=== PATIENT | male | born 1965 | race Two or more races ===

== ENCOUNTER 2019-01-17 10:22 | Emergency (ER) | payer OTHER ==
[~2019-01-17] VITALS: Ht 177.8 cm; Wt 86.0 kg
[2019-01-17] MEDS ORDERED: DICYCLOMINE 10 MG/5 ML ORAL SYR PO STA (13:44)
[2019-01-17] MEDS ORDERED: VISCOUS LIDOCAINE 2% 15 ML UDC PO STA (13:44)
[2019-01-17] MEDS ORDERED: MAGNESIUM/ALUMINUM HYDROXIDE/SIMETHICONE 30ML UDC PO STA (13:44)
[2019-01-17] MEDS ORDERED: SODIUM CHLORIDE 0.9% 1,000 ML IV ONE (13:44)
[2019-01-17] MEDS ORDERED: ONDANSETRON HCL 4MG/2ML INJ IV STA (13:44)
[2019-01-17] MEDS ORDERED: LOPERAMIDE 2 MG/10 ML UDC PO ONE (13:45)
[2019-01-17 14:08] LABS: BASOPHILS % 0.3 % (0.0-2.0); EOSINOPHILS % 0.6 % (0.0-5.0); HEMATOCRIT. 46.9 % (42.0-52.0); HEMOGLOBIN. 15.9 g/dL (14.0-18.0); MEAN CORPUSCULAR HEMOGLOBIN 29.6 pg (28.0-32.0); MEAN CORPUSCULAR VOLUME 87.4 fL (80.0-94.0); MEAN PLATELET VOLUME 7.2 fl (7.4-10.4); MONOCYTES % 9.3 % (2.0-8.0); NEUTROPHILS % 78.8 % (40.0-76.0); PLATELET 263 x1000/uL (130-400); RED BLOOD CELL COUNT 5.36 mill/uL (4.7-6.1); RED CELL DISTRIBUTION WIDTH 13.9 % (11.6-14.6)
[2019-01-17 14:10] LABS: CHLORIDE 105 mEq/L (98-107)
[2019-01-17] MEDS ORDERED: ONDANSETRON HCL 4MG/2ML INJ IV SCH (14:30)
[2019-01-17] MEDS ORDERED: LOPERAMIDE HCL 2MG CAPSULE PO SCH (14:45)
[2019-01-17] MEDS ORDERED: VISCOUS LIDOCAINE 2% 15 ML UDC PO SCH (14:45)
[2019-01-17] MEDS ORDERED: MAGNESIUM/ALUMINUM HYDROXIDE/SIMETHICONE 30ML UDC PO SCH (14:45)
[2019-01-17] MEDS ORDERED: LOPERAMIDE 2 MG/10 ML UDC PO SCH (14:45)
[2019-01-17] MEDS ORDERED: DICYCLOMINE HCL 10MG CAPSULE PO SCH (14:45)
[2019-01-17 15:20] LABS: CLARITY URINE CLOUDY (CLEAR); COLOR URINE YELLOW (YELLOW); KETONES URINE TRACE (NEGATIVE); LEUKOCYTE ESTERASE URINE NEGATIVE (NEGATIVE); NITRITE URINE NEGATIVE (NEGATIVE); OCCULT BLOOD URINE TRACE (NEGATIVE); PH URINE 5.5 (4.5-8.0); PROTEIN URINE 2+ (NEGATIVE); SPECIFIC GRAVITY URINE 1.028 (1.005-1.030)
[2019-01-17 15:29] VITALS: BP 127/72
== END 2019-01-17 15:25 | disposition home or self-care (01) ==
LOC: ER 11:16
DX: R19.7 Diarrhea, unspecified (principal); R11.2 Nausea with vomiting, unspecified; E78.00 Pure hypercholesterolemia, unspecified; F17.200 Nicotine dependence, unspecified, uncomplicated; Z87.19 Personal history of other diseases of the digestive system; Z90.49 Acquired absence of other specified parts of digestive tract
CPT/HCPCS: 36415; 80053; 81003; 83690; 85025; 96361; 96374; 99284; J2405; J7030